=== PATIENT | female | born 1945 | race Caucasian/White ===

== ENCOUNTER 2017-12-06 21:01 | Inpatient (IN) | payer MEDICARE, OTHER ==
[~2017-12-06] VITALS: Ht 160 cm; Wt 68.3 kg
[2017-12-06 21:23] LABS: BASOPHILS % (AUTO) 1 % (0-10); EOSINOPHILS # (AUTO) 0.2 10^3/uL (0.0-0.3); EOSINOPHILS % (AUTO) 3 % (0-10); HEMATOCRIT 41 % (35-52); HEMOGLOBIN 13.4 G/DL (11.5-16.0); LYMPHOCYTES # (AUTO) 2.9 X 10^3 (1.0-4.0); LYMPHOCYTES % (AUTO) 47 % (12-44); MEAN CORPUSCULAR HEMOGLOBIN 33 PG (25-34); MEAN CORPUSCULAR HGB CONC 33 G/DL (32-36); MEAN CORPUSCULAR VOLUME 100 FL (80-99); MEAN PLATELET VOLUME 10.4 FL (7.4-10.4); MONOCYTES # (AUTO) 0.6 X 10^3 (0.0-1.0); MONOCYTES % (AUTO) 10 % (0-12); NEUTROPHILS # (AUTO) 2.4 X 10^3 (1.8-7.8); NEUTROPHILS % (AUTO) 39 % (42-75); PLATELET COUNT 200 10^3/uL (130-400); RED CELL DISTRIBUTION WIDTH 12.9 % (10.0-14.5); WHITE BLOOD COUNT 6.2 10^3/uL (4.3-11.0)
[2017-12-06] MEDS ORDERED: SCOPOLAMINE 1.5 MG (TRANSDERM-SCOP) PATCH TD ONE (21:30)
[2017-12-06] MEDS ORDERED: MECLIZINE 25 MG (ANTIVERT) TAB PO ONE (21:30)
[2017-12-06 21:36] LABS: AMORPHOUS SEDIMENT,UR FEW AMOR URATES /LPF; BILIRUBIN,URINE NEGATIVE (NEGATIVE); CLARITY,URINE CLEAR; COLOR,URINE YELLOW; GLUCOSE, URINE (UA) NEGATIVE (NEGATIVE); KETONES,URINE NEGATIVE (NEGATIVE); LEUKOCYTE ESTERASE ,URINE 1+ (NEGATIVE); NITRITE,URINE NEGATIVE (NEGATIVE); PH,URINE 6 (5-9); PROTEIN,URINE NEGATIVE (NEGATIVE); UROBILINOGEN,URINE NORMAL (NORMAL); WBC,URINE 0-2 /HPF
[2017-12-06 21:36] LABS: FIBRIN DEGRADATION PRODUCTS 0.45 UG/ML (0.00-0.49); PROTHROMBIN TIME PATIENT 12.8 SEC (12.2-14.7)
--- NOTE | 2017-12-06 21:37 | Diagnostic Imaging Report ---
INDICATION: Dizziness. Syncopal. EXAMINATION: Noncontrasted study of the head. FINDINGS: The ventricles appear normal. Cortical gyral pattern shows mild cortical atrophy.. No evidence of cortical edema. There is diffuse bilateral periventricular white matter disease with decreased density in a rather symmetrical uniform fashion. Basal nuclei show no evidence of focal edema. No evidence of intracranial hemorrhage. The basal cisterns are clear. Mastoid air cells are well-aerated. Paranasal sinuses are clear, where visualized. No evidence of calvarial fracture. IMPRESSION: Mild cortical atrophy with bilateral periventricular white matter changes, symmetrical in nature, consistent with chronic disease. No acute change is demonstrated. Dictated by: Dictated on workstation # [id number]
--- NOTE | 2017-12-06 21:38 | Diagnostic Imaging Report ---
INDICATION: Syncopal. Dizziness. FINDINGS: Portable chest. The lungs are clear. The heart is not enlarged. There is no pulmonary edema. No pneumothorax or pleural effusions. The heart is not enlarged. No bony abnormalities. IMPRESSION: Normal portable chest. Dictated by: Dictated on workstation # [id number]
[2017-12-06 21:43] LABS: BUN/CREATININE RATIO 17; CARBON DIOXIDE 22 MMOL/L (21-32); CHLORIDE 104 MMOL/L (98-107); CREATININE SERUM 0.95 MG/DL (0.60-1.30); GFR ESTIMATED 58; POTASSIUM 3.5 MMOL/L (3.6-5.0); SODIUM 140 MMOL/L (135-145)
[2017-12-06 21:44] LABS: ALANINE AMINOTRANSFERASE 14 U/L (0-55); ALBUMIN 4.3 GM/DL (3.2-4.5); ALKALINE PHOSPHATASE 64 U/L (40-136); BILIRUBIN,TOTAL 0.4 MG/DL (0.1-1.0); GLUCOSE 108 MG/DL (70-105); TOTAL PROTEIN 7.3 GM/DL (6.4-8.2)
--- NOTE | 2017-12-06 23:14 | ED Neurological Problem ---
General Chief Complaint: Dizziness/Syncope Stated Complaint: DIZZINESS Nursing Triage Note: PT STATES AROUND 20:00 SHE STOOD UP FROM DINNER AND FELT LIKE HER EYES WENT "WONKY" AND STATES SHE EXPERIENCED DIZZYNESS. PT DENIES PRIOR EXPERIENCES WITH SYNCOPE OR DIZZYNESS TO THIS MAGNITUDE. Nursing Sepsis Screen: No Definite Risk Source: patient, spouse History of Present Illness Date Seen by Provider: Dec 06, 2017 Time Seen by Provider: 21:03 Initial Comments PT ARRIVES VIA POV WITH PT STATES SHE FINISHED EATING AROUND 1999, AND STOOD UP AND GOT REAL DIZZY, AND STATES HER "EYES WENT ZIG-ZAGGY" AND SHE COULDN'T WALK DUE TO DIZZINESS. STATES SHE STOPPED WALKING AND IT GOT A LITTLE BETTER, AND THEN SHE STARTED TO WALK AGAIN AND SYMPTOMS RETURNED. STATES "IT CAME BACK SO I JUST WANT TO CLOSE MY EYES" STATES SHE DOES NOT HAVE PROBLEMS BEARING WEIGHT, JUST STATES SHE CANNOT WALK DUE TO DIZZINESS. STATES DIZZINESS IS NOT A SPINNING SENSATION, BUT IS "LIKE WATER GOING BACK AND FORTH" DENIES PARESTHESIA OR MOTOR DEFICITS. NO HEADACHE STATES HER VISION IS FINE NOW. NO CHEST PAIN NO SHORTNESS OF BREATH NO PALPITATIONS NO NAUSEA/VOMITING NO FEVER NO URI/SINUS SYMPTOMS OR RECENT ILLNESS NO HISTORY OF SIMILAR. PCP: DR. FERRER Allergies and Home Medications Allergies Uncoded Allergies: PCN (Allergy, Unknown, 12/06/17) Patient Home Medication List Home Medication List Reviewed: Yes Review of Systems Review of Systems Constitutional: see HPI, dizziness Eyes: See HPI Ears, Nose, Mouth, Throat: no symptoms reported Respiratory: no symptoms reported Cardiovascular: no symptoms reported Gastrointestinal: no symptoms reported Genitourinary: no symptoms reported Musculoskeletal: no symptoms reported Skin: no symptoms reported Psychiatric/Neurological: See HPI; Denies Cognitive Dysfunction, Denies Headache, Denies Numbness, Denies Tingling, Denies Tonic Clonic Seizures, Denies Unable to Move Lower Ext, Denies Unable to Move Upper Ext, Denies Weakness Endocrine: No Symptoms Reported Hematologic/Lymphatic: No Symptoms Reported Past Zgqfbiy-Gsgkva-Xbkjuu Hx Patient Social History Alcohol Use: Occasionally Uses Recreational Drug Use: No Smoking Status: Former Smoker (< 1 PPD, QUIT 15 YEARS AGO) Recent Foreign Travel: No Contact w/Someone Who Travel: No Recent Infectious Disease Expo: No Recent Hopitalizations: No Seasonal Allergies Seasonal Allergies: No Past Medical History Surgeries: Yes (RIGHT OOPHORECTOMY) Appendectomy, Oophorectomy, Tonsillectomy Respiratory: No Cardiac: No Neurological: No : 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 oz. 68.520201je; BMI Method:Stated General Appearance: WD/WN, no apparent distress HEENT: PERRL/EOMI, pharynx normal, other (LEFT FACIAL DROOP WITH FOREHEAD INVOLVEMENT, AND UNABLE TO COMPLETELY OPEN LEFT EYE) Neck: non-tender, full range of motion, supple, normal inspection; No carotid bruit Respiratory: normal breath sounds, no respiratory distress, no accessory muscle use Cardiovascular: normal peripheral pulses, regular rate, rhythm, no edema, no JVD, no murmur Gastrointestinal: normal bowel sounds, non tender, soft Back: normal inspection, no CVA tenderness Extremities: normal range of motion, non-tender, normal inspection, no pedal edema, no calf tenderness, normal capillary refill Neurologic/Psychiatric: 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, alert, normal mood/affect, oriented x 3, abnormal cerebellar tests, facial droop, motor weakness (ON LEFT) Crainal Nerves: normal hearing, normal speech, PERRL; No abnormal speech; facial asymmetry, facial droop; No facial paresthesias, No gaze palsy Coordination/Gait: ABN nose to finger (L) Motor/Sensory: pronator drift (L), weak motor strength LUE, weak motor strength LLE Skin: normal color, warm/dry Stroke NIH Stroke Scale Assessment Select: Post CT Level of Consciousness: 0=Alert (0), Level of Consciousness- Questions: 0=Answers both month/age (0), Gaze: Normal (0), Visual Logan: 0=No visual loss (0), Facial Movement (Facial Paresis): 2=Partial paralysis (2), Motor Function-Arms Right: 0=No drift (0), Motor Function-Arms Left: 1=Drift (1) , Motor Function-Legs Right: 0=No drift (0), Motor Function-Legs Left: 1=Drift ( 1), Limb Ataxia: 1=Present in one limb (1), Sensory: 0=Normal:no loss (0), Best Language: 0=No aphasia (0), Dysarthria: 0=Normal (0), Extinction & Inattention: 0=No abnormality (0), Total: 5 Stroke Thrombolytic Exclusion Age 18 or Over: Yes Acute intenal hemorrhage: No History of CVA: No Uncontrolled Coagulation Defec: No Intracranial Hemorrhage: No Severe Hypertension: No GI or Bleed: No Subarachnoid Hemorrhage: No Intracranial Neoplasm/Aneurysm: No Oral Anticoagulants: No Surgery or Trauma: No Puncture of Non-Compressible V: No Recent CPR: No Diabetic Hemorrhagic Retinopat: No Organ Biopsy: No Recent Obstetric Delivery: No Glucose: No Significant Hepatic Dysfunctio: No NIH Stoke Scale >22: No Bacterial Endocarditis: No Pericarditis: No Improving Symptoms: No Platelets: No TPA Contraindication: No IV - TPa Received IV - TPa Procedure Performed?: Yes IV - TPa Date: Dec 06, 2017 IV - TPa Time: 23:30 Progress/Results/Core Measures Results/Orders Lab Results Laboratory Tests Test 12/06/17 21:13 12/06/17 21:16 12/06/17 21:22 Range/Units White Blood Count 6.2 4.3-11.0 10^3/uL Red Blood Count 4.10 L 4.35-5.85 10^6/uL Hemoglobin 13.4 11.5-16.0 G/DL Hematocrit 41 35-52 % Mean Corpuscular Volume 100 H 80-99 FL Mean Corpuscular Hemoglobin 33 25-34 PG Mean Corpuscular Hemoglobin Concent 33 32-36 G/DL Red Cell Distribution Width 12.9 10.0-14.5 % Platelet Count 200 130-400 10^3/uL Mean Platelet Volume 10.4 7.4-10.4 FL Neutrophils (%) (Auto) 39 L 42-75 % Lymphocytes (%) (Auto) 47 H 12-44 % Monocytes (%) (Auto) 10 0-12 % Eosinophils (%) (Auto) 3 0-10 % Basophils (%) (Auto) 1 0-10 % Neutrophils # (Auto) 2.4 1.8-7.8 X 10^3 Lymphocytes # (Auto) 2.9 1.0-4.0 X 10^3 Monocytes # (Auto) 0.6 0.0-1.0 X 10^3 Eosinophils # (Auto) 0.2 0.0-0.3 10^3/uL Basophils # (Auto) 0.0 0.0-0.1 10^3/uL Prothrombin Time 12.8 12.2-14.7 SEC INR Comment 1.0 0.8-1.4 Activated Partial Thromboplast Time 26 24-35 SEC D-Dimer 0.45 0.00-0.49 UG/ML Sodium Level 140 135-145 MMOL/L Potassium Level 3.5 L 3.6-5.0 MMOL/L Chloride Level 104 98-107 MMOL/L Carbon Dioxide Level 22 21-32 MMOL/L Anion Gap 14 5-14 MMOL/L Blood Urea Nitrogen 16 7-18 MG/DL Creatinine 0.95 0.60-1.30 MG/DL Estimat Glomerular Filtration Rate 58 BUN/Creatinine Ratio 17 Glucose Level 108 H 70-105 MG/DL Calcium Level 10.0 8.5-10.1 MG/DL Corrected Calcium 9.8 8.5-10.1 MG/DL Total Bilirubin 0.4 0.1-1.0 MG/DL Aspartate Amino Transf (AST/SGOT) 15 5-34 U/L Alanine Aminotransferase (ALT/SGPT) 14 0-55 U/L Alkaline Phosphatase 64 40-136 U/L Troponin I < 0.30 <0.30 NG/ML Total Protein 7.3 6.4-8.2 GM/DL Albumin 4.3 3.2-4.5 GM/DL Glucometer 110 70-110 MG/DL Urine Color YELLOW Urine Clarity CLEAR Urine pH 6 5-9 Urine Specific Heath 1.020 1.016-1.022 Urine Protein NEGATIVE NEGATIVE Urine Glucose (UA) NEGATIVE NEGATIVE Urine Ketones NEGATIVE NEGATIVE Urine Nitrite NEGATIVE NEGATIVE Urine Bilirubin NEGATIVE NEGATIVE Urine Urobilinogen NORMAL NORMAL MG/DL Urine Leukocyte Esterase 1+ H NEGATIVE Urine RBC (Auto) 1+ H NEGATIVE Urine RBC 2-5 H /HPF Urine WBC 0-2 /HPF Urine Squamous Epithelial Cells 2-5 /HPF Urine Crystals PRESENT H /LPF Urine Amorphous Sediment FEW BRADLEY URATES H /LPF Urine Bacteria NONE /HPF Urine Casts NONE /LPF Urine Mucus NEGATIVE /LPF Urine Culture Indicated NO My Orders Orders - SHARMAINE BROWER DO Cbc With Automated Diff (12/06/17:) Protime With Inr (12/06/17 21:03) Partial Thromboplastin Time (12/06/17 21:03) Comprehensive Metabolic Panel (12/06/17 21:03) Fibrin Degradation Products (12/06/17:) Troponin I (12/06/17:) Ua Culture If Indicated (12/06/17 21:03) Chest 1 View, Ap/Pa Only (12/06/17:03) Ekg Tracing (12/06/17:) Nothing By Mouth (12/07/17 Breakfast) Accucheck Stat ONCE (12/06/17:) Saline Lock/Iv-Start (12/06/17 21:03) Saline Lock/Iv-Start (12/06/17:03) Vital Signs Stroke Patient Q15M (12/06/17 21:03) Ct Head Wo-R/O Stroke (12/06/17 21:03) O2 (12/06/17 21:03) Intake & Output 06,14,22 (12/06/17 21:03) Monitor-Rhythm Ecg Trace Only (12/06/17:03) Dysphagia Screening Tool (12/06/17 21:03) Post Thrombolytic Adminstratio (12/06/17 21:03) Lipid Panel (12/07/17 06:00) Scopolamine Patch (Transderm-Scop Patch) (12/06/17 21:30) Meclizine Tablet (Antivert Tablet) (12/06/17 21:30) Ct Angio Head/Neck (12/06/17 21:39) Catheter(Urinary) Insert & Ass 03,15 (12/06/17 22:01) Iohexol Injection (Omnipaque 350 Mg/Ml 1 (12/06/17 23:15) Ns (Ivpb) (Sodium Chloride 0.9%) (12/06/17 23:15) Alteplase (Activase) (Activase Injection (12/06/17 23:15) Post Thrombolytic Adminstratio (12/06/17 23:12) Medications Given in ED Current Medications Medications Dose Ordered Sig/Denis Route Start Time Stop Time Status Last Admin Dose Admin Alteplase, Recombinant (0.9mg/ kg-max 90mg) with ... ONCE ONCE IV 12/06/17 23:15 12/06/17 23:23 DC 12/06/17 23:34 55.3 MG Iohexol 100 ml ONCE ONCE IV 12/06/17 23:15 12/06/17 23:16 DC 12/06/17 23:14 100 ML Sodium Chloride 250 ml ONCE ONCE IV 12/06/17 23:15 12/06/17 23:16 DC 12/06/17 23:14 80 ML Vital Signs/I&O 12/06/17 12/06/17 21:05 21:05 Temp 97.9 Pulse 82 Resp 20 B/P (MAP) 145/85 (105) Pulse Ox 98 94 O2 Delivery Room Air Room Air Blood Pressure Mean: 105 FSBG Bedside Testing Finger Stick Blood Glucose: 110 Blood Glucose Action Taken: PROVIDER NOTIFIED Progress Progress Note : Progress Note ON ARRIVAL, PT STATES SHE NEEDS TO URINATE. PLACED ON BEDPAN PT STATES SHE NEEDS TO URINATE AGAIN, IMMEDIATELY ON RETURN FROM CT. PLACED ON BEDPAN PT INITIALLY REQUESTED A CATHETER, THEN LATER REFUSED AFTER TOLD HER NOT TO HAVE IT. NO DETERIORATION IN PT'S CONDITION DURING ER STAY PT REFUSES ANTIVERT AND SCOPOLAMINE--PT STATES SHE DOES NOT LIKE TO TAKE MEDICATION AND STATES SHE DOESN'T NEED THEM. PT DOES AGREE TO TPA Initial ECG Impression Date: Dec 06, 2017 Initial ECG Impression Time: 21:33 Initial ECG Rate: 67 Initial ECG Rhythm: Normal Sinus Diagnostic Imaging Comments CXR--NO ACUTE PROCESS, PENDING RADIOLOGIST REVIEW CT HEAD--NO ACUTE PROCESS, PER RADIOLOGIST REPORT @ 5544 CT ANGIOGRAM HEAD/NECK--NO ACUTE FINDINGS , PER [facility] VIA FAX @ [id number] Reviewed: Reviewed by Me Departure Communication (Admissions) 2309--CALLED NEUROLOGIST SHIPPING TECHNICIAN. SPOKE WITH DR. VEE, HE ADVISED THAT PT WOULD BE A CANDIDATE FOR TPA 2314--SPOKE WITH DR. LEE, ACCEPTS PT FOR ADMIT AND AGREES TO TPA Impression Primary Impression: CVA WITH LEFT SIDE WEAKNESS Disposition: ADMITTED INPATIENT Condition: Stable Admissions Decision to Admit Reason: Admit from ER (General) Decision to Admit/Date: Dec 06, 2017 Time/Decision to Admit Time: 23:15 Departure-Patient Inst. Referrals: UNKNOWN (PCP/Family) Primary Care Physician SHARMAINE BROWER DO Dec 06, 2017 23:14
[2017-12-06] MEDS ORDERED: NS 250 ML (IVPB) BAG IV ONE (23:15)
[2017-12-06] MEDS ORDERED: IOHEXOL 350 MG/ML 100 ML (OMNIPAQUE 350) VIAL IV ONE (23:15)
[2017-12-06] MEDS ORDERED: ALTEPLASE 100 MG/VIAL (ACTIVASE) IV ONE ×2 (23:15→23:19)
[2017-12-07] VITALS (11 sets, daily range): BP systolic 105–162; BP diastolic 58–95
[2017-12-07 03:46] LABS: BASOPHILS % (AUTO) 1 % (0-10); EOSINOPHILS # (AUTO) 0.1 10^3/uL (0.0-0.3); EOSINOPHILS % (AUTO) 3 % (0-10); HEMATOCRIT 39 % (35-52); HEMOGLOBIN 12.7 G/DL (11.5-16.0); LYMPHOCYTES # (AUTO) 2.2 X 10^3 (1.0-4.0); LYMPHOCYTES % (AUTO) 43 % (12-44); MEAN CORPUSCULAR HEMOGLOBIN 33 PG (25-34); MEAN CORPUSCULAR HGB CONC 33 G/DL (32-36); MEAN CORPUSCULAR VOLUME 100 FL (80-99); MEAN PLATELET VOLUME 10.6 FL (7.4-10.4); MONOCYTES # (AUTO) 0.7 X 10^3 (0.0-1.0); MONOCYTES % (AUTO) 12 % (0-12); NEUTROPHILS # (AUTO) 2.2 X 10^3 (1.8-7.8); NEUTROPHILS % (AUTO) 41 % (42-75); PLATELET COUNT 200 10^3/uL (130-400); RED CELL DISTRIBUTION WIDTH 12.8 % (10.0-14.5); WHITE BLOOD COUNT 5.2 10^3/uL (4.3-11.0)
[2017-12-07 04:05] LABS: ALANINE AMINOTRANSFERASE 13 U/L (0-55); ALBUMIN 3.9 GM/DL (3.2-4.5); ALKALINE PHOSPHATASE 57 U/L (40-136); BILIRUBIN,TOTAL 0.4 MG/DL (0.1-1.0); BUN/CREATININE RATIO 17; CALCIUM 9.5 MG/DL (8.5-10.1); CARBON DIOXIDE 20 MMOL/L (21-32); CHLORIDE 109 MMOL/L (98-107); CREATININE SERUM 0.81 MG/DL (0.60-1.30); GFR ESTIMATED > 60; GLUCOSE 115 MG/DL (70-105); POTASSIUM 3.8 MMOL/L (3.6-5.0); SODIUM 139 MMOL/L (135-145); TOTAL PROTEIN 6.6 GM/DL (6.4-8.2)
[2017-12-07 04:10] LABS: CHOLESTEROL 238 MG/DL (< 200); HDL CHOLESTEROL 39 MG/DL (40-60); TRIGLYCERIDES 299 MG/DL (<150); VLDL CHOLESTEROL 60 MG/DL (5-40)
--- NOTE | 2017-12-07 05:39 | Pulmonary Consultation ---
History of Present Illness History of Present Illness Date of Consultation 12/07/17 05:34 Time Seen by Provider: 05:34 Date of Admission History of Present Illness 72yo patient presented to ED secondary to dizziness and trouble ambulating secondary to dizziness. Pt was noted to have left sided facial droop and left sided weakness. NIH was 5 on admission. pt was given TPA and NIH this AM is 2. PT does state that she feels better. No JOHNSON, syncope, or palpitations. No prior episodes. I am consulted for ICU management. Allergies and Home Medications Allergies Uncoded Allergies: PCN (Allergy, Unknown, 12/06/17) Home Medications Atorvastatin Calcium 10 Mg Tablet, 10 MG PO HS Prescribed by: TEETEE BLANCAS on 12/07/17 [id number] Past Xwazjkv-Xlkyri-Baduyk Hx Patient Social History Alcohol Use: Occasionally Uses Recreational Drug Use: No Smoking Status: Former Smoker (< 1 PPD, QUIT 15 YEARS AGO) Former Smoker, Quit: Dec 07, 2002 Recent Foreign Travel: No Contact w/Someone Who Travel: No Recent Infectious Disease Expo: No Recent Hopitalizations: No Seasonal Allergies Seasonal Allergies: No Past Medical History Surgeries: Yes (RIGHT OOPHORECTOMY) Appendectomy, Oophorectomy, Tonsillectomy Respiratory: No Cardiac: No Neurological: No : 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 8.0oz. 68.582425kt; 26.7 BMI Method:Stated Exam Exam Vital Signs Date Time Temp Pulse Resp B/P (MAP) Pulse Ox O2 Delivery O2 Flow Rate FiO2 12/07/17 04:00 95 Room Air 12/07/17 01:03 64 12/07/17 00:30 97.2 12/07/17 00:30 95 Room Air 12/07/17 00:20 98.2 84 17 120/67 (84) 99 Room Air 12/06/17 21:05 97.9 82 20 145/85 (105) 94 Room Air 12/06/17 21:05 98 Room Air Height & Weight Height: 5'3.00" Weight: 150lbs. 8.0oz. 68.577173zr; 26.7 BMI Method:Stated General Appearance: Anxious, Mild Distress Neck: Normal Inspection, Non Tender, Supple; No JVD Respiratory: No Accessory Muscle Use, No Respiratory Distress, Decreased Breath Sounds Cardiovascular: Regular Rate, Rhythm; No No Edema, No No Gallop Capillary Refill: Less Than 3 Seconds Gastrointestinal: normal bowel sounds, non tender, soft Neurologic/Psychiatric: Alert Skin: Normal Color, Warm/Dry Lymphatic: No Adenopathy Results Lab Laboratory Tests 12/06/17 21:13 12/07/17 03:10 Assessment/Plan Assessment/Plan Acute CVA s/p TPA -Swallow eval this AM prior to PO intake -Start ASA or Plavix 24hrs after TPA was given -echocardiogram ZACKARY FLORES DO Dec 07, 2017 05:39
[2017-12-07] MEDS ORDERED: MAGNESIUM 1 GM/100 ML IVPB 100 ML IV SCH (06:00)
[2017-12-07] MEDS ORDERED: POTASSIUM CL 10MEQ/50ML IVPB 50 ML IV SCH (06:00)
[2017-12-07] MEDS ORDERED: KCL 20 MEQ TAB (K-DUR) PO SCH (06:00)
--- NOTE | 2017-12-07 07:23 | Diagnostic Imaging Report ---
PROCEDURE: CT angiography of the head and CT angiography of the neck with and without contrast. TECHNIQUE: Contiguous noncontrast images were obtained from the skull base through the vertex. After intravenous contrast administration, helical CT angiography of the neck was performed. Source data was reformatted into multiple 2D MIP projections. Delayed post contrast acquisition was also obtained. INDICATION: Dizziness COMPARISON: CT from 12/06/2017 FINDINGS: There is mild atherosclerosis in the right common and internal carotid arteries without significant stenosis. There is also mild calcific atherosclerosis in the left common and internal carotid arteries without significant stenosis. The left vertebral artery is slightly dominant. No vertebral artery dissection or occlusion is seen. The anterior cerebral arteries are unremarkable. The anterior communicating artery is well seen and appears normal. The middle cerebral arteries are unremarkable. The right posterior communicating artery is robust. The left posterior communicating artery is well seen. The posterior cerebral arteries appear normal. The superior cerebellar arteries appear patent. The basilar artery is patent. Postcontrast images of the head demonstrate no asymmetric perfusion or enhancing masses. There is no midline shift or mass effect. No acute intracranial hemorrhage is seen. The calvarium is intact. There is a large cystic structure in the right maxilla, may represent an odontogenic cyst. Bilateral lens implants are noted. The soft tissues about the neck are unremarkable. There is dependent atelectasis in the lung bases bilaterally. There are advanced degenerative changes in the cervical spine at C3-4, C4-5, C5-6, with mild anterolisthesis at C3-4 mild retrolisthesis at C4-5. There is spinal canal narrowing at C4-5. IMPRESSION: 1. Mild carotid atherosclerosis with no evidence of stenosis or dissection in the neck. No occlusion or aneurysm seen in the arterial structures of the head. 2. Right maxillary cystic structure, may represent an odontogenic cyst. 3. No enhancing masses. 4. Advanced degenerative changes in the cervical spine. Dictated by: Dictated on workstation # [id number]
[2017-12-07] MEDS ORDERED: FLU QUADRIvalent (5+ YOA) 2018-2019 (AFLURIA) 0.5 ML IM ONE (07:45)
--- NOTE | 2017-12-07 08:01 | Diagnostic Imaging Report ---
INDICATION: Left-sided weakness, stroke. TECHNIQUE: Single frontal view of the chest. COMPARISON: 12/06/2017 FINDINGS: Lung volumes are normal. No focal consolidation is seen. There is eventration of the diaphragm. The cardiomediastinal silhouette is normal in size and contour. No acute osseous abnormality is seen. There is no pleural effusion or pneumothorax. IMPRESSION: No acute pulmonary abnormality seen. Dictated by: Dictated on workstation # [id number]
--- NOTE | 2017-12-07 11:30 | ST Dysphagia Evaluation ---
Speech Evaluation-General Medical Diagnosis Dizzines/Syncope Onset Date: Dec 06, 2017 Therapy Diagnosis Therapy Diagnosis: Dysphagia Precautions Precautions/Isolations: Standard Precautions Referral Referring Physician: Dr. Braga Reason for Referral: Evaluation/Treatment Medical History Current History Possible CVA Reviewed History: Yes Social History Current Living Status: Other Family Speech PLF/Current-Dysphagia Prior Level of Function Independent Subjective Pt in bed. Pleasant and cooperative. Cognitive Status Patient Orientation: Person Oral Motor Skills Dentition: Natural Ability to Follow Directions: Good Oral Expression Ability: No Impairment Voice Voice Phonatory-Based Quality: Normal Voice Pitch: Normal Voice Loudness: Normal Face Facial Symmetry: Asymmetrical (slight droop on L) Oral-Facial Assessment Oral-Facial Dentition: Normal Labial Seal Description: Normal Smile: Droops Left Lingual Protrusion: Normal Lingual ROM: Normal Dysphagia Evaluation Consistencies Presented: Regular, Thin Liquid, Mechanical Soft, Pureed WNL WNL Dietary Recommendations: Regular Liquid Recommendations: Thin Dysphagia Evaluation Summary Functional oropharyngeal swallow. No signs/symptoms noted. Barriers to Learning None observed. Speech Short Term Goals Short Term Goals Short Term Goals No goals established as pt does not require skilled ST. Speech Emergency Technician Goals Long-Term Goals No goals established as skilled ST indicated. Speech-Plan Patient/Family Goals Patient/Family Goals: to return home. Treatment Plan Speech Therapy Treatment Plan: Discontinue ST pt does not require skilled ST services. Frequency: Modified Program (IRF) (0) Estimated Hrs Per Day: Other (0) Rehab Potential: Good Barriers to Learning: None identified Pt/Family Agrees to Plan: Yes Safety Risks/Education Teaching Recipient: Patient Teaching Methods: Discussion Response to Teaching: Verbalize Understanding Time Speech Therapy Time In: 09:35 Speech Therapy Time Out: 09:50 Total Billed Time: 15 Billed Treatment Time 1, RYAN KHARI Moulton Dec 07, 2017 11:30
--- NOTE | 2017-12-07 15:39 | Discharge Instructions ---
Discharge Instructions Patient Instructions Patient Instructions: Take 1 baby aspirin daily beginning tomorrow morning. Take Lipitor a cholesterol drug one daily. This is relative to a modest elevation in your cholesterol and the advantage which brought here. See Dr. Rasmussen in 10-14 days. Return to The Hospital For: Recurrent or changing symptomatology Activity & Diet Discharge Diet: No Restrictions TEETEE BLANCAS MD Dec 07, 2017 15:39
[2017-12-07] MEDS ORDERED: ATOR10TA PO (15:51)
== END 2017-12-07 16:20 | disposition home or self-care (01) | DRG 62 ==
LOC: ER 21:03 → ICU 23:15
PROVIDERS: ADMIT Family Medicine; ATTEND Family Medicine
DX: I63.9 Cerebral infarction, unspecified (principal); G81.94 Hemiplegia, unspecified affecting left nondominant side; R29.810 Facial weakness; Z87.891 Personal history of nicotine dependence; R29.705 NIHSS score 5
CPT/HCPCS: 36415; 51702; 70450; 70496; 70498; 71045; 80053; 80061; 81000; 82962; 83735; 84484; 85025; 85379; 85610; 85730; 87081; 93005; 93041; 96365

== ENCOUNTER → 2018-03-23 | Outpatient (CLI) | payer MEDICARE ==
[~2018-03-23] MED LIST: ATOR10TA PO
== END | disposition home or self-care (01) ==
LOC: PREOP 06:19
PROVIDERS: ATTEND Podiatrist Foot & Ankle Surgery
DX: Z01.818 Encounter for other preprocedural examination (principal)